=== PATIENT | female | born 1985 | race Asian ===

== ENCOUNTER 2025-02-08 15:27 | Emergency (ER) | payer MEDICAID ==
[~2025-02-08] VITALS: Ht 149.9 cm; Wt 69.4 kg
[2025-02-08 15:29] VITALS: BP 138/96; PULSE 117; RESP 16; TEMP 96.3; O2SAT 97
[2025-02-08] MEDS ORDERED: CELE-193 PO (15:52)
[2025-02-08] MEDS ORDERED: HYDR-3965 PO (15:52)
[2025-02-08] MEDS ORDERED: CYCL-394 PO (15:52)
--- NOTE | 2025-02-08 16:02 | Physician Documentation ---
HPI ~ General Chief Complaint: Medication Request Stated Complaint: BACK PAIN Time Seen by MD: 15:47 History of Present Illness HPI Comments Presents with worsening medication of the refill on her pain medications for were previous fractures which occurred years ago between six and seven thoracic vertebrae. Denies any acute injury, denies any numbness or tingling or any other red flag symptoms Without Medications Since: Feb 08, 2025 Medication Reconciliation Allergies: Coded Allergies: No Known Allergies (Unverified , 02/08/25) Scheduled Celecoxib* (Celebrex*), 1 CAP PO Q12H Cyclobenzaprine HCl (Cyclobenzaprine HCl), 1 TAB PO Q8H Scheduled PRN Hydrocodone Bit/Acetaminophen 5/325 MG (Constantia 5/325 MG), 1 TAB PO Q6H PRN for pain Review of Systems All Other Systems at this time: Reviewed and Negative ROS General: Alert, no apparent distress. Cardiovascular: Regular rate and rhythm, no murmurs. Gastrointestinal: Soft, nontender, nondistended. Bowels sounds present. back : tender to palpation upper thoracic to pa;pltaion Neurologic: Oriented x4. Psychiatric: Normal mood and affect. Skin: Normal color, warm and dry. No edema, no ecchymosis. Physical Exam Physical Exam Vital Signs: Temperature: 96.3, Source: Temporal, Heart Rate: 117, Respiratory Rate: 16, BP: 138/96, Pulse Oximetry: 97, Weight: 69.400 Progress Results/Orders Results/Orders Vital Signs 02/08/25 15:29 Temp 96.3 Pulse 117 Resp 16 B/P (MAP) 138/96 Pulse Ox 97 Departure Disposition: HOME / SELF CARE / HOMELESS Impression: Primary Impression: Pain Discharge Instructions: Medicine Refill at the Emergency Department Referrals: NO PRIMARY CARE PROVIDER (PCP) Prescriptions Cyclobenzaprine HCl (Cyclobenzaprine HCl) 10 Mg Tablet 1 TAB PO Q8H for muscle spasms for 10 Days, #30 TAB Prov: CARLOS ENRIQUE RIOS [employer]AIL LOAN ORIGINATOR 02/08/25 Celecoxib* (Celebrex*) 100 Mg Capsule 1 CAP PO Q12H for arthritis for 30 Days, #60 CAP Prov: CARLOS ENRIQUE RIOS [employer] LO[employer] ORIGINATOR 02/08/25 Hydrocodone Bit/Acetaminophen 5/325 MG (Constantia 5/325 MG) 5 Mg/325 Mg Tablet 1 TAB PO Q6H PRN for pain, #7 TAB Prov: CARLOS ENRIQUE RIOS NP 02/08/25 Education Educated: Patient Educated regarding: diagnosis Signature Scribe Signature: d Attestation: Scribed for Carlos Enrique Rios [employer] Business Agent by Carlos Enrique Brand NP . 02/08/25 16:01 CARLOS ENRIQUE RIOS NP Feb 08, 2025 16:02
== END 2025-02-08 16:33 | disposition home or self-care (01) ==
LOC: ER 15:28
DX: M54.6 Pain in thoracic spine (principal); Z76.0 Encounter for issue of repeat prescription; Z79.899 Other long term (current) drug therapy
CPT/HCPCS: 99281

== ENCOUNTER 2025-05-30 11:47 | Emergency (ER) | payer MEDICAID ==
[~2025-05-30] VITALS: Ht 149.9 cm; Wt 68.4 kg
[2025-05-30 12:01] VITALS: TEMP 97
--- NOTE | 2025-05-30 14:01 | Physician Documentation ---
History of Present Illness ~ Chief Complaint: Back Pain Stated Complaint: BACK PAIN Time Seen by MD: 13:46 HPI This is a 40-year-old female with a history of chronic low back pain who presents with acute exacerbation of low back pain after losing access to her previously prescribed medications, patient reports that she was kicked out of her apartment where her medications are. Patient reports she has not contacted the police to assist in recovering medications yet. Patient reports no new back pain symptoms including no new weakness or numbness in legs, no saddle paresthesia, and no loss of bowel or bladder control. Patient reports no other acute symptoms or concerns. Medication Reconciliation Allergies: Coded Allergies: divalproex sodium (Verified Allergy, Unknown, 05/30/25) lithium (Verified Allergy, Unknown, 05/30/25) Scheduled Celecoxib* (Celebrex*), 1 CAP PO Q12H Cyclobenzaprine* (Cyclobenzaprine*), 1 TAB PO TID Lidocaine (Lidoderm), 1 PATCH TOP DAILY Past Medical History Past Medical History: Chronic Back Pain Review of Systems ROS As stated above in the HPI, otherwise all systems are reviewed and negative. Physical Exam Physical Exam Vital Signs: Temperature: 97.0, Source: Temporal, Heart Rate: 98, Respiratory Rate: 18, BP: 118/77, Pulse Oximetry: 98, Weight: 68.400 Physical Exam VITALS: Reviewed and as above. GENERAL: Alert, nontoxic appearing, no apparent distress. RESPIRATORY: No increased work of breathing, no respiratory distress, speaking in full clear sentences BACK: Tenderness to lumbar back, no step-offs, no crepitus Progress Results/Orders Results/Orders Completed Orders - JULIAN GAONA PATIENT SERVICES CLERK Ketorolac Trometh 15mg/Ml Vial (Toradol (05/30/25 14:05) Cyclobenzaprine Tablet (Flexeril Tablet) (05/30/25 14:05) Lidocaine 5% Patch (Lidoderm 5% Patch) (05/30/25 14:05) Vital Signs 05/30/25 05/30/25 05/30/25 12:01 14:16 14:23 Temp 97.0 Pulse 98 82 Resp 18 17 15 B/P (MAP) 118/77 116/78 Pulse Ox 98 99 Medical Decision Making Additional information obtaine: old records Findings This 40-year-old female history of chronic low back pain presented with acute exacerbation of chronic low back pain after access to previously prescribed medications. As patient is otherwise well reporting no new symptoms and reports no back pain red flags including: No new weakness or numbness in legs, no saddle paresthesia, no loss of bowel or bladder control, no recent fevers, and no recent trauma, imaging in the emergency department is not indicated. Patient medicated for pain in the emergency department and discharged with a short course of medications for low back pain, patient advised that we can not refill her controlled substance prescription and that she would need to contact law enforcement to regain access to the medication and her previous prescriber to have this medication refilled in the future. Patient provided home care instructions, return to care precautions, and follow up instructions which she verbalized understanding of. Differential Dx:Considerations: Bowel obstruction, Cholelithiasis, Fracture, Musculoskeletal pain, Pyelonephritis, Urinary obstruction, Urolithiasis, Ovarian torsion, Renal infarction, Urinary tract infection, Other (Cauda equina) Departure Time of Disposition: 14:02 Disposition: 01 HOME / SELF CARE / HOMELESS Impression: Primary Impression: Acute exacerbation of chronic low back pain Condition: Improved Discharge Instructions: Chronic Back Pain Additional Instructions: Please use the medications as prescribed, do not drive or operate heavy machinery or use other medications that make you drowsy while taking the muscle relaxer (cyclobenzaprine). Contact law enforcement to regain access to your [place]. Please follow up with your primary care provider in the next few days. Please return to the emergency department for any new or worsening concerning symptoms but not limited to new weakness or numbness in your legs or loss of bowel or bladder control. Referrals: NO PRIMARY CARE PROVIDER (PCP) Prescriptions Lidocaine (Lidoderm) 5 % Adh..patch 1 PATCH TOP DAILY for 10 Days, #10 PATCH 0 Refills may wear up to 12 hours Prov: JULIAN GAONA [facility] 05/30/25 Cyclobenzaprine* (Cyclobenzaprine*) 10 Mg Tablet 1 TAB PO TID for 10 Days, #30 TAB Prov: JULIAN GAONA PATIENT SERVICES CLERK 05/30/25 Celecoxib* (Celebrex*) 100 Mg Capsule 1 CAP PO Q12H for arthritis for 30 Days, #60 CAP Prov: JULIAN GAONA [facility] 05/30/25 Education Educated: Patient Educated regarding: diagnosis, treatment, prognosis, need for follow up Signature Scribe Signature: No scribe Attestation: The note accurately reflects work and decisions made by me.HERIBERTO Rosario 05/31/25 01:07 JULIAN GAONA May 30, 2025 14:01
[2025-05-30] MEDS ORDERED: CELE-193 PO (14:05)
[2025-05-30] MEDS ORDERED: LIDO-52 TOP (14:05)
[2025-05-30] MEDS ORDERED: CYCL-1 PO (14:05)
[2025-05-30 14:16] VITALS: BP 116/78; PULSE 82; O2SAT 99
[2025-05-30 14:23] VITALS: RESP 15
[2025-05-30] MEDS: ketorolac trometh 15mg/ml vial 15 MG/ML ML IM ONE (14:23)
== END 2025-05-30 14:33 | disposition home or self-care (01) ==
LOC: ER 11:48
DX: G89.29 Other chronic pain (principal); M54.50 Low back pain, unspecified; Z88.8 Allergy status to other drugs, medicaments and biological substances
CPT/HCPCS: 96372; 99283; J1885